=== PATIENT | male | born 1990 | race Caucasian/White ===

== ENCOUNTER 2019-06-18 13:02 | Emergency (ER) | payer BC ==
[~2019-06-18] VITALS: Ht 177.8 cm; Wt 79.5 kg
[2019-06-18 13:09] VITALS: BP 179/105
[2019-06-18] MEDS ORDERED: HYDR-3164 PO (14:00)
[2019-06-18] MEDS ORDERED: PENI500T PO (14:00)
--- NOTE | 2019-06-18 14:01 | PHYS DOC ---
Past Medical History Past Medical History: No Pertinent History Past Surgical History: No Surgical History Smoking Status: Never Smoker Alcohol Use: None General Adult EDM: Chief Complaint: DENTAL PROBLEM HPI: HPI: Patient is a 29 year old male who presents with left upper dental pain that began last night with left-sided facial swelling. Patient denies any nausea, vomiting or fever. Rates his pain a 10 out of 10. Review of Systems: Review of Systems: HENT: Denies nasal congestion or sore throat. Left upper dental pain and left facial swelling [] Heart Score: Risk Factors: Risk Factors: DM, Current or recent (<one month) smoker, HTN, HLP, family history of CAD, obesity. Risk Scores: Score 0 - 3: 2.5% MACE over next 6 weeks - Discharge Home Score 4 - 6: 20.3% MACE over next 6 weeks - Admit for Clinical Observation Score 7 - 10: 72.7% MACE over next 6 weeks - Early Invasive Strategies Allergies: Allergies: Allergies Coded Allergies Type Severity Reaction Last Updated Verified No Known Drug Allergies 06/18/19 No Physical Exam: PE: Constitutional: Well developed, well nourished, no acute distress, non-toxic appearance. [] HENT: Normocephalic, atraumatic, bilateral external ears normal, oropharynx moist, no oral exudates, nose normal. Broken teeth and dental caries throughout whole mouth. Left-sided upper gumline redness and tenderness with left-sided facial swelling. [] Eyes: PERRLA, EOMI, conjunctiva normal, no discharge. [] Neck: Normal range of motion, no tenderness, supple, no stridor. [] Cardiovascular:Heart rate regular rhythm, no murmur [] Lungs & Thorax: Bilateral breath sounds clear to auscultation [] Abdomen: Bowel sounds normal, soft, no tenderness, no masses, no pulsatile masses. [] Skin: Warm, dry, no erythema, no rash. [] Back: No tenderness, no CVA tenderness. [] Extremities: No tenderness, no cyanosis, no clubbing, ROM intact, no edema. [] Neurologic: Alert and oriented X 3, normal motor function, normal sensory function, no focal deficits noted. [] Psychologic: Affect normal, judgement normal, mood normal. [] Current Patient Data: Vital Signs: Vital Signs Date Time Temp Pulse Resp B/P (MAP) Pulse Ox O2 Delivery O2 Flow Rate FiO2 06/18/19 13:09 97.9 64 18 179/105 (129) 99 Room Air 97.9 EKG: EKG: [] Radiology/Procedures: Radiology/Procedures: [] Course & Med Decision Making: Course & Med Decision Making Pertinent Labs and Imaging studies reviewed. (See chart for details) Patient states he does not have any dental insurance. Patient has many broken teeth throughout his whole mouth, missing teeth, reddened gums that are tender with palpation and dental caries. No facial redness. No abscess can be felt the gumline is very reddened and tender. [] Dragon Disclaimer: Dragon Disclaimer: This electronic medical record was generated, in whole or in part, using a voice recognition dictation system. Departure Departure Impression: Primary Impression: Abscess, dental Additional Impression: Dental caries Disposition: HOME, SELF-CARE Condition: STABLE Referrals: NO PCP (PCP) Patient Instructions: Dental Abscess, Dental Caries Additional Instructions: Follow with a dentist as soon as possible. Take medication with food and as prescribed. Scripts Penicillin V Potassium (PENICILLIN V POTASSIUM) 500 Mg Tablet 1 TAB PO QID, #40 TAB Prov: YELENA SANCHEZ APRN 06/18/19 Hydrocodone/Apap 5-325 (NORCO 5-325 TABLET) 1 Each Tablet 1 TAB PO PRN Q6HRS PRN for PAIN, #12 TAB 0 Refills Prov: YELENA SANCHEZ [employer] MANAGER 06/18/19 YELENA SANCHEZ APRN Jun 18, 2019 14:00
== END 2019-06-18 14:04 | disposition home or self-care (01) ==
LOC: ER 13:02
DX: K04.7 Periapical abscess without sinus (principal); K02.9 Dental caries, unspecified; K08.89 Other specified disorders of teeth and supporting structures
CPT/HCPCS: 99283

== ENCOUNTER 2019-11-12 02:37 | Emergency (ER) | payer BC ==
[~2019-11-12] VITALS: Ht 177.8 cm; Wt 84.0 kg
[~2019-11-12 02:37] MED LIST: HYDR-3164 PO; PENI500T PO
[2019-11-12 02:50] VITALS: BP 151/101
[2019-11-12] MEDS ORDERED: AMOX500C PO (03:14)
[2019-11-12] MEDS ORDERED: HYDR-3164 PO (03:14)
--- NOTE | 2019-11-12 03:14 | PHYS DOC ---
Past Medical History Past Medical History: No Pertinent History Past Surgical History: No Surgical History Smoking Status: Never Smoker Alcohol Use: None General Adult EDM: Chief Complaint: DENTAL PROBLEM HPI: HPI: Patient is a 29 year old male who presents with chronic dental pain that has flared up over last couple days. Patient states he has had increased pain of the left maxilla that is worse with eating. Pain is severe in intensity and worse with eating. Pain is nonradiating. Patient denies fever. Patient denies any other complaints. No history of trauma Review of Systems: Review of Systems: Constitutional: Denies fever or chills. [] Eyes: Denies change in visual acuity. [] HENT: Complains of dental pain Respiratory: Denies cough or shortness of breath. [] Cardiovascular: Denies chest pain or edema. [] GI: Denies abdominal pain, nausea, vomiting, bloody stools or diarrhea. [] : Denies dysuria. [] Musculoskeletal: Denies back pain or joint pain. [] Integument: Denies rash. [] Neurologic: Denies headache, focal weakness or sensory changes. [] Endocrine: Denies polyuria or polydipsia. [] Lymphatic: Denies swollen glands. [] Psychiatric: Denies depression or anxiety. [] Heart Score: Risk Factors: Risk Factors: DM, Current or recent (<one month) smoker, HTN, HLP, family history of CAD, obesity. Risk Scores: Score 0 - 3: 2.5% MACE over next 6 weeks - Discharge Home Score 4 - 6: 20.3% MACE over next 6 weeks - Admit for Clinical Observation Score 7 - 10: 72.7% MACE over next 6 weeks - Early Invasive Strategies Current Medications: Current Medications Medications (Trade) Dose Ordered Sig/Roby Start Time Stop Time Status Last Admin Dose Admin Ibuprofen (Children'S Motrin) 230 mg 1X ONCE 11/12/19 03:15 11/12/19 03:16 UNV Allergies: Allergies: Allergies Coded Allergies Type Severity Reaction Last Updated Verified No Known Drug Allergies 06/18/19 No Physical Exam: PE: Constitutional: Well developed, well nourished, no acute distress, non-toxic appearance. [] HENT: Widespread dental decay with some mild swelling to the left maxillary gingiva. No drainable abscess. No submandibular abscess Eyes: PERRLA, EOMI, conjunctiva normal, no discharge. [] Neck: Normal range of motion, no tenderness, supple, no stridor. [] Cardiovascular:Heart rate regular rhythm peripheral pulses intact Lungs & Thorax: Bilateral breath sounds clear, no respiratory distress Abdomen: Bowel sounds normal, soft, no tenderness, no masses, no pulsatile masses. [] Skin: Warm, dry, no erythema, no rash. [] Back: No tenderness, no CVA tenderness. [] Extremities: No tenderness, no cyanosis, no clubbing, ROM intact, no edema. [] Neurologic: Alert and oriented X 3, normal motor function, normal sensory function, no focal deficits noted. [] Psychologic: Affect normal, judgement normal, mood normal. [] EKG: EKG: [] Radiology/Procedures: Radiology/Procedures: [] Course & Med Decision Making: Course & Med Decision Making Pertinent Labs and Imaging studies reviewed. (See chart for details) [] 29-year-old male with maxillary dental pain due to multiple caries. Patient was placed on antibiotics. No drainable abscess at this time. Return precautions given. No pain with extraocular movements. Dragon Disclaimer: [employer] Disclaimer: This electronic medical record was generated, in whole or in part, using a voice recognition dictation system. Departure Departure Impression: Primary Impression: Dental caries Disposition: 01 HOME, SELF-CARE Condition: STABLE Referrals: NO PCP (PCP) dental Patient Instructions: Dental Abscess Additional Instructions: EMERGENCY DEPARTMENT GENERAL DISCHARGE INSTRUCTIONS THANK YOU for coming to [facility] Emergency Department (ED) today and trusting us with your care. We trust that you had a positive experience in our Emergency Department. If you wish to speak to the department Management you can contact the education department registrar at . YOUR FOLLOW UP INSTRUCTIONS ARE FOLLOWS: Do you have a private doctor? If you do not have a private doctor, please ask for a resource list of physicians or clinics that may be able to assist you with follow up care. The Emergency Physician has interpreted your x-rays. The X-ray specialist will also review them. If there is a change in the findings you will be notified in 48 hours when at all possible. A lab test or lab culture may have been done, your results will be reviewed and you will be notified if you need a change in treatment. ADDITIONAL INSTRUCTIONS AND INFORMATION Your care today has been supervised by a physician who is specially trained in emergency care. Many problems require more than one evaluation for a complete diagnosis and treatment. We recommend that you schedule your follow up appointment as recommended to ensure complete treatment of your illness or injury. If you are unable to obtain follow up care and continue to have a problem, or if your condition worsens we recommend that you return to the ED. We are not able to safely determine your condition over the phone nor are we able to give sound medical advice over the phone. For these safety reasons, if you call for medical advice we will ask you to come to the ED for further evaluation If you have any questions regarding these discharge instructions please call the ED at . SAFETY INFORMATION In the interest of safety, wellness, and injury prevention; we encourage you to wear your seatbelt, if you smoke; quit smoking, and we encourage your family to use protective helmet for bicycling and other sporting events that present an increased risk for head injury. IF YOUR SYMPTOMS WORSEN OR NEW SYMPTOMS DEVELOP, OR YOU HAVE CONCERNS ABOUT YOUR CONDITION; OR IF YOUR CONDITION WORSENS WHILE YOU ARE WAITING FOR YOUR FOLLOW UP APPOINTMENT; EITHER CONTACT YOUR PRIMARY CARE DOCTOR, THE PHYSICIAN WHOSE NAME AND NUMBER YOU WERE GIVEN, OR RETURN TO THE ED IMMEDIATELY. Scripts Amoxicillin (AMOXICILLIN) 500 Mg Capsule 1 CAP PO TID, #30 CAP Prov: SEBLE MCKENZIE MD 11/12/19 Hydrocodone/Apap 5-325 (NORCO 5-325 TABLET) 1 Each Tablet 1-2 EACH PO PRN Q6HRS PRN for PAIN, #15 as needed for pain Prov: SEBLE MCKENZIE MD 11/12/19 Justicifation of Admission Dx: Justifications for Admission: Justification of Admission Dx: N/A SEBLE MCKENZIE MD Nov 12, 2019 03:14
[2019-11-12] MEDS ORDERED: IBUPROFEN 100 MG/5 ML ORAL.SUSP. PO ONE (03:15)
[2019-11-12] MEDS ORDERED: HYDROcodone/APAP 7.5/325MG 1 TAB TABLET PO ONE (03:30)
== END 2019-11-12 03:26 | disposition home or self-care (01) ==
LOC: ER 02:37
DX: K02.9 Dental caries, unspecified (principal); K08.89 Other specified disorders of teeth and supporting structures; R60.0 Localized edema
CPT/HCPCS: 99283

== ENCOUNTER 2020-03-17 13:18 | Emergency (ER) | payer BC ==
[~2020-03-17] VITALS: Ht 175.3 cm; Wt 80.0 kg
[~2020-03-17 13:18] MED LIST changes: +AMOX500C PO
[2020-03-17] MEDS ORDERED: AMOX875T PO (13:36)
[2020-03-17] MEDS ORDERED: NAPR-514 PO (13:36)
[2020-03-17] MEDS ORDERED: HYDR-2761 PO (13:36)
--- NOTE | 2020-03-17 13:37 | PHYS DOC ---
Past Medical History Past Medical History: Other Additional Past Medical Histor: SEVERE DENTAL DECAY Past Surgical History: No Surgical History Smoking Status: Never Smoker Alcohol Use: None General Adult EDM: Chief Complaint: DENTAL PROBLEM HPI: HPI: Patient is a 29 year old male patient presenting to the ED today complaining of dental abscess to the left upper gum, symptoms began yesterday. Denies any fevers or trismus. Reports moderate pain to the left upper gum. Describes the pain as throbbing and constant worse on eating cold foods. Denies anything specifically relieving the pain Review of Systems: Review of Systems: Constitutional: Denies fever or chills. [] HENT: Reports dental abscess. Denies nasal congestion or sore throat. [] Musculoskeletal: Denies back pain or joint pain. [] Integument: Denies rash. [] Neurologic: Denies headache, focal weakness or sensory changes. [] Psychiatric: Denies depression or anxiety. [] Heart Score: Risk Factors: Risk Factors: DM, Current or recent (<one month) smoker, HTN, HLP, family history of CAD, obesity. Risk Scores: Score 0 - 3: 2.5% MACE over next 6 weeks - Discharge Home Score 4 - 6: 20.3% MACE over next 6 weeks - Admit for Clinical Observation Score 7 - 10: 72.7% MACE over next 6 weeks - Early Invasive Strategies Allergies: Allergies: Allergies Coded Allergies Type Severity Reaction Last Updated Verified No Known Drug Allergies 06/18/19 No Physical Exam: PE: Constitutional: Well developed, well nourished, no acute distress, non-toxic appearance. [] HENT: Normocephalic, atraumatic, bilateral external ears normal, oropharynx moist, no oral exudates, nose normal. [] Left upper cheek with mild swelling consistent of a dental abscess. Left upper molars premolars are missing, there is barely a tooth left, the gum surface where the tooth are missing appears to have old decayed left upper teeth. There is mild left upper gum erythema, no drainable abscess noted. Skin: Warm, dry, no erythema, no rash. [] Back: No tenderness, no CVA tenderness. [] Extremities: No tenderness, no cyanosis, no clubbing, ROM intact, no edema. [] Neurologic: Alert and oriented X 3, normal motor function, normal sensory function, no focal deficits noted. [] Psychologic: Affect normal, judgement normal, mood normal. [] EKG: EKG: [] Radiology/Procedures: Radiology/Procedures: [] Course & Med Decision Making: Course & Med Decision Making Pertinent Labs and Imaging studies reviewed. (See chart for details) This is a 29-year-old male patient with a dental abscess. Discharged on penici llin and naproxen with hydrocodone. Follow-up with his own dentist as soon as possible Kyle Disclaimer: Kyle Disclaimer: This electronic medical record was generated, in whole or in part, using a voice recognition dictation system. Departure Departure Impression: Primary Impression: Abscess, dental Disposition: 01 DC HOME SELF CARE/HOMELESS Condition: STABLE Referrals: NO PCP (PCP) Follow-up with your dentist in 1 to 2 weeks Patient Instructions: Dental Abscess Additional Instructions: You were seen for a dental abscess. Take the prescribed antibiotics until completed. Take the pain medicine as needed for pain. Follow-up with your doctor in 1 to 2 weeks Scripts Naproxen (NAPROXEN) 500 Mg Tablet 1 TAB PO BID for pain, #20 TAB 0 Refills Prov: JESSICA TOMPKINS CULLET WASHER 03/17/20 Hydrocodone Bit/Acetaminophen (HYDROCODONE-APAP 5-325 ) 1 Tab Tablet 1 TAB PO PRN Q6HRS PRN for PAIN, #14 TAB 0 Refills Prov: JESSICA TOMPKINS APRN 03/17/20 Amoxicillin (AMOXICILLIN) 875 Mg Tablet 1 TAB PO BID, #20 TAB Prov: JESSICA TOMPKINS CULLET WASHER 03/17/20 JESSICA TOMPKINS APRN Mar 17, 2020 13:37
[2020-03-17 13:40] VITALS: BP 137/105
== END 2020-03-17 13:40 | disposition home or self-care (01) ==
LOC: ER 13:18
DX: K04.7 Periapical abscess without sinus (principal); K08.89 Other specified disorders of teeth and supporting structures; R60.0 Localized edema
CPT/HCPCS: 99283

== ENCOUNTER 2020-06-19 18:00 | Emergency (ER) | payer BC ==
[~2020-06-19 18:00] MED LIST changes: +AMOX875T PO; +HYDR-2761 PO; +NAPR-514 PO
[2020-06-20] MEDS ORDERED: HYDR-2761 PO (13:19)
[2020-06-20] MEDS ORDERED: PENI500T PO (13:19)
== END 2020-06-19 20:15 | disposition left against medical advice (07) ==
LOC: ER 18:00
DX: K08.89 Other specified disorders of teeth and supporting structures (principal); Z53.21 Procedure and treatment not carried out due to patient leaving prior to being seen by health care provider

== ENCOUNTER 2020-06-20 13:03 | Emergency (ER) | payer BC ==
[~2020-06-20] VITALS: Ht 177.8 cm; Wt 77.0 kg
[2020-06-20 13:09] VITALS: BP 168/101
[2020-06-20] MEDS ORDERED: HYDR-2761 PO (13:19)
[2020-06-20] MEDS ORDERED: PENI500T PO (13:19)
--- NOTE | 2020-06-20 13:20 | PHYS DOC ---
Past Medical History Past Medical History: Other Additional Past Medical Histor: SEVERE DENTAL DECAY Past Surgical History: No Surgical History Smoking Status: Never Smoker Alcohol Use: None General Adult EDM: Chief Complaint: DENTAL PROBLEM HPI: HPI: 30-year-old male presented emerge department today with dental pain. He has had dental pain for more than a month. His pain is a throbbing aching pain. It is worse over the past 2 or 3 days. He has had some swelling in the left cheek area. He denies any new rashes. He has not had any fevers. He is swallowing his secretions without difficulty. Review of systems negative for chest pain shortness of breath neck pain neck swelling abdominal pain. No rashes. All other review of systems negative. ED course: 30-year-old male presenting with dental pain. Patient is well- appearing. Extremely poor dentition. Likely all of his teeth will need to be pulled by a dentist. Will refer him to dentistry today for evaluation. We will give him penicillin and a few medications for pain. He should take both ibuprofen and Tylenol for pain. He will need to be careful not to take too much Tylenol as a medication I will give him as some Tylenol in it. Heart Score: C/O Chest Pain: N/A Risk Factors: Risk Factors: DM, Current or recent (<one month) smoker, HTN, HLP, family history of CAD, obesity. Risk Scores: Score 0 - 3: 2.5% MACE over next 6 weeks - Discharge Home Score 4 - 6: 20.3% MACE over next 6 weeks - Admit for Clinical Observation Score 7 - 10: 72.7% MACE over next 6 weeks - Early Invasive Strategies Allergies: Allergies: Allergies Coded Allergies Type Severity Reaction Last Updated Verified No Known Drug Allergies 06/18/19 No Physical Exam: PE: Constitutional: Well developed, well nourished, no acute distress, non-toxic appearance. [] HENT: Normocephalic, atraumatic, bilateral external ears normal, oropharynx moist, no oral exudates, nose normal. [] Patient has poor dentition. No obvious dental abscesses present. All of his teeth have severe decay and need to be pulled. He has minimal swelling of the left nasolabial area without any erythema. Not warm to touch. Uvula is midline. Nontender neck. No fluctuant masses. Eyes: PERRLA, EOMI, conjunctiva normal, no discharge. [] Neck: Normal range of motion, no tenderness, supple, no stridor. [] Cardiovascular:Heart rate regular rhythm, no murmur [] Lungs & Thorax: Bilateral breath sounds clear to auscultation [] Abdomen: Bowel sounds normal, soft, no tenderness, no masses, no pulsatile masses. [] Skin: Warm, dry, no erythema, no rash. [] Back: No tenderness, no CVA tenderness. [] Extremities: No tenderness, no cyanosis, no clubbing, ROM intact, no edema. [] Neurologic: Alert and oriented X 3, normal motor function, normal sensory function, no focal deficits noted. [] Psychologic: Affect normal, judgement normal, mood normal. [] EKG: EKG: [] Radiology/Procedures: Radiology/Procedures: [] Course & Med Decision Making: Course & Med Decision Making Pertinent Labs and Imaging studies reviewed. (See chart for details) [] Dragon Disclaimer: [employer] Disclaimer: This electronic medical record was generated, in whole or in part, using a voice recognition dictation system. Departure Departure Impression: Primary Impression: Dental caries Disposition: HOME / SELF CARE / HOMELESS Condition: STABLE Referrals: NO PCP (PCP) Patient Instructions: Dental Caries Additional Instructions: EMERGENCY DEPARTMENT GENERAL DISCHARGE INSTRUCTIONS Follow-up with your dentist today for evaluation. Return to the emergency department if you have any new or concerning findings. Thank you for coming to [facility] Emergency Department (ED) today and trusting us with you care. We trust that you had a positive experience in our Emergency Department. If you wish to speak to the department management, you may call the Director at [phone]. Follow up is important in emergency/acute care visits. This condition should be evaluated by your primary care physician and any necessary consulting services for continued management within a few days (1-2) after discharge. Return to the emergency department if you have any new or concerning symptoms including but not limited to fever, chills, nausea, vomiting, intractable pain, any new rashes, chest pain, shortness of breath, uncontrolled bleeding, difficulty breathing, and/or vision loss. 1. Do you have a private Doctor? If you do not have a private doctor, please ask for a resource list of physicians or clinics that may be able to assist you with follow up care. 2. If a lab test or culture has been done and does not come back immediately, your results will be reviewed and you will be notified if you need a change in treatment. 3. Your care today has been supervised by a physician who is specially trained in emergency care. Many problems require more than one evaluation for a complete diagnosis and treatment. We recommend that you schedule your follow up appointment as recommended to ensure complete treatment of you illness or injury. If you are unable to obtain follow up care and continue to have a problem, or if your condition worsens, we recommend that you return to the ED. 4. We are not able to safely determine your condition over the phone nor are we able to give sound medical advice over the phone. For these safety reasons, if you call for medical advice we will ask you to come to the ED for further evaluation. IF YOUR SYMPTOMS WORSEN OR NEW SYMPTOMS DEVELOP, OR YOU HAVE CONCERNS ABOUT YOUR CONDITION; OR IF YOUR CONDITION WORSENS WHILE YOU ARE WAITING FOR YOUR FOLLOW UP APPOINTMENT; EITHER CONTACT YOUR PRIMARY CARE DOCTOR, THE PHYSICIAN WHOSE NAME AND NUMBER YOU WERE GIVEN, OR RETURN TO THE ED IMMEDIATELY. Scripts Hydrocodone Bit/Acetaminophen (HYDROCODONE-APAP 5-325 ) 1 Tab Tablet 1 TAB PO PRN Q8HRS PRN for SEVERE PAIN, #8 TAB 0 Refills Prov: SPENCER MITCHELL MD 06/20/20 Penicillin V Potassium (PENICILLIN V POTASSIUM) 500 Mg Tablet 1 TAB PO TID for 10 Days, #30 TAB Prov: SPENCER MITCHELL MD 06/20/20 SPENCER MITCHELL MD Jun 20, 2020 13:20
== END 2020-06-20 13:27 | disposition home or self-care (01) ==
LOC: ER 13:03
DX: K02.9 Dental caries, unspecified (principal); K08.89 Other specified disorders of teeth and supporting structures; R60.0 Localized edema
CPT/HCPCS: 99283